=== PATIENT | male | born 1980 | race American Indian/Alaskan Native ===

== ENCOUNTER 2017-10-10 12:13 | Emergency (ER) | payer SELFPAY ==
--- NOTE | 2017-10-10 13:37 | Emergency Department Report ---
ED Chest Pain HPI - General Chief Complaint: Chest Pain Stated Complaint: CHEST PAIN Time Seen by Provider: 10/10/17 13:09 Source: patient Mode of arrival: Ambulatory Limitations: No Limitations - History of Present Illness Initial Comments: Patient is 37 years old male with no significant past medical history. Patient presented to the ER complaining of diffuse chest pain started this morning. Patient stated that pain is worse when he moved. He stated that he was working out yesterday mainly the chest area. Patient denied any shortness of breath, cough or fever. MD Complaint: chest pain -: This morning - Related Data Allergies Allergy/AdvReac Type Severity Reaction Status Date / Time No Known Allergies Allergy Verified 10/10/17 12:14 Heart Score - HEART Score History: Slightly suspicious EKG: Normal Age: < 45 Risk factors: No known risk factors Troponin: < normal limit HEART Score: 0 - Critical Actions Critical Actions: 0-3 pts:0.9-1.7%risk of adverse cardiac event.Candidate for discharge ED Review of Systems ROS: Stated complaint: CHEST PAIN Other details as noted in HPI Comment: All other systems reviewed and negative Constitutional: denies: chills, fever Respiratory: denies: cough, orthopnea Cardiovascular: chest pain. denies: palpitations, dyspnea on exertion Gastrointestinal: denies: abdominal pain, vomiting ED Past Medical Hx - Past Medical History Previous Medical History?: Yes Hx Hypertension: Yes - Surgical History Past Surgical History?: No - Social History Smoking Status: Former Smoker Substance Use Type: Alcohol, Marijuana ED Physical Exam - General Limitations: No Limitations General appearance: alert, in no apparent distress - Head Head exam: Present: atraumatic, normocephalic, normal inspection - Eye Eye exam: Present: normal appearance, PERRL - ENT ENT exam: Present: normal exam, normal orophraynx, mucous membranes moist - Respiratory Respiratory exam: Present: normal lung sounds bilaterally, chest wall tenderness (diffuse chest wall tenderness). Absent: respiratory distress, wheezes, rales, rhonchi, stridor, accessory muscle use, decreased breath sounds , prolonged expiratory - Cardiovascular Cardiovascular Exam: Present: regular rate, normal rhythm, normal heart sounds - GI/Abdominal GI/Abdominal exam: Present: soft - Extremities Exam Extremities exam: Present: normal inspection, full ROM, normal capillary refill - Back Exam Back exam: Present: normal inspection, full ROM. Absent: tenderness, CVA tenderness (R), CVA tenderness (L), muscle spasm, paraspinal tenderness - Neurological Exam Neurological exam: Present: alert, oriented X3, CN II-XII intact, normal gait, reflexes normal - Skin Skin exam: Present: warm, intact, normal color ED Course Vital Signs 10/10/17 12:14 Temperature 98 F Pulse Rate 59 L Respiratory 20 Rate Blood Pressure 130/77 O2 Sat by Pulse 98 Oximetry ED Medical Decision Making - EKG Data -: EKG Interpreted by Me EKG shows normal: sinus rhythm Rate: bradycardia - EKG Data Interpretation: no acute changes - Medical Decision Making Patient's symptoms is most likely musculoskeletal. Patient stated that he started working out yesterday mainly to the chest area. EKG is normal except for this sinus bradycardia. Advised patient to follow-up with his primary care physician in the next 2-3 days and to return to the ER if his symptoms are not improving. Critical care attestation.: If time is entered above; I have spent that time in minutes in the direct care of this critically ill patient, excluding procedure time. ED Disposition Clinical Impression: Chest pain, Acute costochondritis Disposition: -01 TO HOME OR SELFCARE Is pt being admited?: No Condition: Stable Instructions: Chest Pain (ED), Costochondritis (ED) Referrals: PRIMARY CARE, [Primary Care Provider] - 3-5 Days
[2017-10-10 13:49] VITALS: BP 127/74
== END 2017-10-10 13:52 | disposition home or self-care (01) ==
LOC: ED 12:13
DX: M94.0 Chondrocostal junction syndrome [Tietze] (principal); I10 Essential (primary) hypertension; Z87.891 Personal history of nicotine dependence
CPT/HCPCS: 93005; 93010; 99282